=== PATIENT | male | born 1970 | race Caucasian/White ===

== ENCOUNTER 2023-08-13 20:23 | Emergency (ER) | payer OTHER, SELFPAY ==
[2023-08-13 20:25] VITALS: BP 119/67; PULSE 84; RESP 16; TEMP 36.7; O2SAT 94; BMI 24.7
--- NOTE | 2023-08-13 20:38 | CT_ITS ---
PROCEDURE INFORMATION: Exam: CT Abdomen And Pelvis With Contrast Exam date and time: 08/13/2023 10:30 PM Age: 53 years old Clinical indication: Abdominal pain; Additional info: L inguinal/groin pain, h/o hernia, can't pee TECHNIQUE: Imaging protocol: Computed tomography of the abdomen and pelvis with contrast. Total images: 268 Radiation optimization: All CT scans at this facility use at least one of these dose optimization techniques: automated exposure control; mA and/or kV adjustment per patient size (includes targeted exams where dose is matched to clinical indication); or iterative reconstruction. Contrast material: ISOVUE; Contrast volume: 75 ml; Contrast route: IV; REPORTING DATA: Count of CT and Cardiac NM exams in prior 12 months: This patient has received 0 known CTs and 0 known cardiac nuclear medicine studies in the 12 months prior to the current study. COMPARISON: No relevant prior studies available. FINDINGS: Lungs: Lung bases are clear. Heart: Normal heart size. Liver: Normal. No mass. Gallbladder and bile ducts: Contracted gallbladder. No calcified gallstones. Mild dilatation of the extrahepatic bile duct at 8 mm. Pancreas: Subtle increased density of the pancreatic head, encompassing the common bile duct. No pancreatitis. No ductal dilatation. Spleen: Normal. No splenomegaly. Adrenal glands: Normal. No mass. Kidneys and ureters: Small upper pole right renal cortical cyst. No hydronephrosis or nephrolithiasis. Unremarkable left kidney. Stomach and bowel: Unremarkable stomach and duodenum. No ileus or bowel obstruction. Small bowel appears within normal limits. Unremarkable terminal ileum. Moderate colonic stool burden. Moderate diverticulosis of the descending and sigmoid colon without acute diverticulitis. Moderate rectal stool burden. Mild rectal wall thickening. Appendix: Normal appendix. Intraperitoneal space: Unremarkable. No free air. No significant fluid collection. Vasculature: Atherosclerotic abdominal aorta without aneurysm. Dilated main portal vein without thrombus. Lymph nodes: Unremarkable. No enlarged lymph nodes. Urinary bladder: Moderate circumferential bladder wall thickening. No bladder stones. Reproductive: Nonenlarged prostate Bones/joints: No acute osseous abnormality. Mild degenerative changes thoracolumbar spine. No concerning bone lesions. Soft tissues: Very tiny fat containing umbilical hernia. Minor fat stranding base of the left inguinal canal, question prior hernia repair. IMPRESSION: 1. Abnormal appearance of the pancreatic head and mild dilatation of the extrahepatic bile duct. Recommend follow-up nonemergent MRCP. 2. Moderate circumferential bladder wall thickening. Differential of chronic outlet obstruction, cystitis, and less likely neoplasm. 3. Rectal wall thickening concerning for proctitis, cannot exclude neoplasm. 4. Moderate colonic diverticulosis without acute diverticulitis. 5. Additional chronic and incidental findings. COMMENTS: Consistent with the [employer]'s Incidental Findings Committee white paper (J Am Sergei Radiol 2018): Any incidental renal lesion less than 1 cm or classified as too small to characterize, or any incidental cystic renal lesion characterized as simple-appearing, is likely benign. No follow-up imaging is recommended for these lesions per consensus recommendations based on imaging criteria.
[2023-08-13 20:47] LABS: Basophils # 0.1 K/mm3 (0-0.2); Basophils % 0.9 % (0.1-2.0); Eosinophils # 0.2 K/mm3 (0.0-0.4); Eosinophils % 2.1 % (0.1-12.0); Hematocrit 54.8 % (42.0-52.0); Lymphocytes # 3.7 K/mm3 (0.7-4.5); Lymphocytes % 34.6 % (10-50); Mean Corpuscular HGB Conc 33.1 g/dL (31.8-35.4); Mean Corpuscular Hemoglobin 32.8 pg (27.0-31.2); Mean Corpuscular Volume 99.3 fl (80-94); Mean Platelet Volume 7.8 fl (7.4-10.4); Monocytes # 0.7 K/mm3 (0.1-1.0); Monocytes % 6.7 % (1.7-9.3); Neutrophils # 5.9 K/mm3 (1.8-7.8); Neutrophils % 55.8 % (37.0-80.0); Platelet Count 238 K/mm3 (142-424); Red Blood Count 5.52 M/mm3 (4.60-6.20); Red Cell Distribution Width 13.1 % (11.5-17.5); White Blood Count 10.7 K/mm3 (4.8-10.8)
[2023-08-13 20:53] LABS: Hemoglobin 18.1 g/dL (14.1-18.0)
[2023-08-13 20:54] LABS: Alanine Aminotransferase 24 U/L (12-78); Albumin Level 4.8 g/dl (3.5-5.0); Albumin/Globulin Ratio 1.4 (1.1-1.8); Alkaline Phosphatase 73 U/L (38-126); Anion Gap 11.1 mEq/L (5-15); Aspartate Amino Transferase 38 U/L (17-59); Bilirubin,Total 0.4 mg/dl (0.2-1.3); Blood Urea Nitrogen 15 mg/dl (9-20); Calcium 9.3 mg/dl (8.4-10.2); Carbon Dioxide 33 mmol/L (22.0-30.0); Chloride 99 mmol/L (98-107); Creatinine Clearance Estimated 63 mL/min (50-200); Estimated Glomerular Filt Rate 70 ml/min (>60); GFR (African American) 85 ML/MIN (>60); Globulin 3.4 g/dL (1.3-3.2); Glucose 107 mg/dl (74-100); Potassium 4.1 mmoL/L (3.5-5.1); Sodium 139 mmol/L (136-145); Total Protein,Serum 8.2 g/dl (6.3-8.2)
[2023-08-13 20:57] LABS: Lactic Acid 1.3 mmol/L (0.7-2.1)
--- NOTE | 2023-08-13 21:22 | [facility].EDGENADL ---
Discharge Plan Disposition Patient Disposition: Home, Self-Care Condition: Good Prescriptions Prescriptions: New prednisone 50 mg tablet 50 mg PO DAILY 5 Days Qty: 5 0RF ciprofloxacin HCl 500 mg tablet 500 mg PO BID Qty: 20 0RF metronidazole 500 mg tablet 500 mg PO BID 10 Days Qty: 20 0RF ondansetron 4 mg tablet,disintegrating 4 mg PO Q8H PRN (Reason: nausea and vomiting) 4 Days Qty: 12 0RF Referrals Follow up/Referrals: Provider,Referral, MD [Primary Care Provider] - See instructions Activity Restrictions/Add. Instructions Additional Instructions/Restrictions: You were evaluated in the emergency department today. Your CT scan is concerning for abnormalities of your pancreas as well as your rectum, for which I recommend follow-up with your primary care provider for further evaluation and management. You may need gastroenterology and/or surgical referral for further evaluation and management of this. To help with your pain and possible proctitis, I prescribed you steroids and antibiotics. Please bulk picker your prescriptions at the pharmacy and take the full course as prescribed. Return to the emergency department for new or worsening symptoms. Clinical Impressions Clinical Impression: Proctitis, Pancreatic abnormality Instructions Patient Instructions: DI for Proctitis Discharge ED Provider: Minnie Yeung General Adult HPI General Chief complaint: Urogenital-Male Stated complaint: abd pain with swelling Time Seen by Provider: 08/13/23 20:37 Mode of Arrival: Ambulatory Source of Information: Patient Limitations: No Limitations Description of Symptoms (Recalled from ER Triage Doc. by RN): pt reports left groin pain for 1 month that radiates into testicle, reports burning with urination History of Present Illness HPI narrative: This patient is a 53-year-old male with a history of inguinal hernia status post repair presenting to the emergency department for evaluation with concern for 1 month of left groin pain that radiates into his testicle. He states that it is worse when he goes to pee. He states that he is having difficulty peeing as a result of this. He denies any fevers, chills, or other concerns. He is still passing gas and having good bowel movements. No other concerns noted at this time. Related Data Previous Rx's Medication Instructions Recorded ciprofloxacin HCl 500 mg tablet 500 mg PO BID #20 tabs 08/13/23 metronidazole 500 mg tablet 500 mg PO BID 10 days #20 tabs 08/13/23 ondansetron 4 mg disintegrating 4 mg PO Q8H PRN nausea and 08/13/23 tablet vomiting 4 days #12 tabs prednisone 50 mg tablet 50 mg PO DAILY 5 days #5 tabs 08/13/23 Allergies Allergy/AdvReac Type Severity Reaction Status Date / Time Penicillins Allergy Verified 08/13/23 20:38 [facility] Disclaimer: The information contained in this section may have been updated after the patient was seen, as this information can be updated by other users. Social History Smoking Status: Current every day smoker alcohol intake: never current occupational status: employed Travel in the last 8 weeks: None ROS Obtained: Yes All systems reviewed & no additional complaints except as documented Physical Exam General General appearance: alert and in no apparent distress Head Head exam: atraumatic and normocephalic Eye Eye exam: Present normal appearance, PERRL and EOMI ENT ENT exam: Present normal exam, normal oropharynx, mucous membranes moist and normal external ear exam Neck Neck exam: Present normal inspection, full ROM and trachea midline; Absent tenderness Chest Chest inspection: Present normal inspection and symmetric chest wall rise; Absent tenderness Respiratory Respiratory exam: Present normal lung sounds bilaterally; Absent respiratory distress, wheezes, stridor or accessory muscle use Cardiovascular Cardiovascular exam: Present regular rate a
[2023-08-13 21:49] LABS: Microscopic, Urine URINE MICROSCOPIC (MICROSCOPIC)
[2023-08-13 21:51] LABS: Appearance,Urine CLEAR (Clear); Bilirubin,Urine Negative (Negative); Blood, Urine Negative (Negative); Color,Urine YELLOW (Yellow); Glucose,Urine (UA) Negative (Negative); Ketones,Urine Negative (Negative); Leukocyte Esterase,Urine Negative (Negative); Nitrate,Urine Negative (Negative); Protein,Urine Negative (Negative); Specific Gravity, Urine 1.015 (1.005-1.030); Urobilinogen,Urine 0.2 EU/dl (0.2)
[2023-08-13 22:44] VITALS: BP 125/84; PULSE 81; RESP 16; TEMP 36.7; O2SAT 95
== END 2023-08-13 22:48 | disposition home or self-care (01) ==
PROVIDERS: Emergency Provider Emergency Medicine
DX: R10.30 Lower abdominal pain, unspecified (principal); R93.3 Abnormal findings on diagnostic imaging of other parts of digestive tract; R93.2 Abnormal findings on diagnostic imaging of liver and biliary tract; K62.89 Other specified diseases of anus and rectum; F17.210 Nicotine dependence, cigarettes, uncomplicated
CPT/HCPCS: 74177; 80053; 81001; 83605; 85025; 96361; 96374; 96375; 99285; J2405; Q9967